=== PATIENT | female | born 1965 | race Two or more races ===

== ENCOUNTER 2017-06-01 09:31 | Emergency (ER) | payer BC | END 2017-06-01 09:37 | disposition left against medical advice (07) | LOC: UCEAST 09:31 | DX: S49.90XA Unspecified injury of shoulder and upper arm, unspecified arm, initial encounter (principal); X58.XXXA Exposure to other specified factors, initial encounter; Y93.9 Activity, unspecified; Y92.9 Unspecified place or not applicable; Z53.21 Procedure and treatment not carried out due to patient leaving prior to being seen by health care provider ==